=== PATIENT | female | born 1960 | race African-American/Black ===

== ENCOUNTER 2017-01-14 08:02 | Emergency (ER) | payer MEDICAID, OTHER ==
[~2017-01-14] VITALS: Ht 167.6 cm; Wt 95.0 kg
[~2017-01-14 08:02] MED LIST: LORT5TAB PO; SILV1CRE59 TOP
[2017-01-14] MEDS ORDERED: ESTR0.5T PO (08:18)
[2017-01-14] MEDS ORDERED: BENZ100 PO (08:29)
[2017-01-14] MEDS ORDERED: IPRA0.06 EACH NARE (08:29)
[2017-01-14] MEDS ORDERED: AZIT250T3 PO (08:29)
--- NOTE | 2017-01-14 08:30 | PD ---
HPI Chief Complaint: Cold / Flu Symptoms Time Seen by Provider: 08:23 Travel History International Travel<30 days: No Contact w/Intl Traveler<30days: No Traveled to known affect area: No History of Present Illness HPI Patient is a 56-year-old female presenting to emergency for evaluation of cough , nasal congestion, sinus pressure. Patient states her symptoms started 4 days ago, she denies any fever, chills, nausea, vomiting, abdominal pain, shortness of breath, chest pain. Patient states the cough is dry, hacking keeping her up at night. Patient reports postnasal drip and an irritated throat secondary to that. She has no other complaints at this time. [facility] Past Medical History Medical History: Denies Significant Hx Tetanus Vaccination: > 5 Years ?: Not Social History Alcohol Use: No Tobacco Use: No Substance Use: No Allergies-Medications (Allergen,Severity, Reaction): Coded Allergies: Penicillin (Verified Allergy, Severe, SWELLING, ITCHING, 01/14/17) Reported Meds & Prescriptions Reported Meds & Active Scripts Active Tessalon Perles (Benzonatate) 100 Mg Cap 200 Mg PO TID PRN 3 Days Azithromycin 250 Mg Tab 250 Mg PO DIRECTED Take 2 tabs (500 mg) on day 1 then 1 tab daily x 4 days. Ipratropium Nasal 0.06% Madison 1 Madison EACH NARE TID PRN Reported Estradiol 0.5 Mg Tab 0.5 Mg PO DAILY Review of Systems Except as stated in HPI: all other systems reviewed are Neg General / Constitutional: No: Fever, Chills HENT: Positive: Sore Throat, Rhinitis, Congestion Cardiovascular: No: Chest Pain or Discomfort Respiratory: Positive: Cough, No: Shortness of Breath, Wheezing Gastrointestinal: No: Nausea, Vomiting, Diarrhea, Abdominal Pain Musculoskeletal: No: Myalgias Neurologic: No: Dizziness, Focal Abnormalities, Headache Physical Exam Narrative GENERAL: Well-nourished, well-developed patient. SKIN: Warm and dry. HEAD: Normocephalic. ENT: Mucosa pink and moist. No erythema or exudates. No uvular edema. No uvular , palatal, or tonsillar deviation. Airway patent. Nasal turbinates appear normal without nasal blood, purulent drainage or septal hematoma. Cobblestone appearance to posterior pharynx. EYES: No scleral icterus. No injection or drainage. NECK: Supple, trachea midline. No JVD or lymphadenopathy. CARDIOVASCULAR: Regular rate and rhythm without murmurs, gallops, or rubs. RESPIRATORY: Breath sounds equal bilaterally. No accessory muscle use. GASTROINTESTINAL: Abdomen soft, non-tender, nondistended. MUSCULOSKELETAL: No cyanosis, or edema. BACK: Nontender without obvious deformity. No CVA tenderness. Data Data Last Documented VS Vital Signs Date Time Temp Pulse Resp B/P Pulse Ox O2 Delivery O2 Flow Rate FiO2 01/14/17 08:48 97.8 71 20 180/[address] [facility] Medical Decision Making Medical Screen Exam Complete: Yes Emergency Medical Condition: Yes Interpretation(s) Vital Signs Date Time Temp Pulse Resp B/P Pulse Ox O2 Delivery O2 Flow Rate FiO2 01/14/17 08:48 97.8 71 20 180/80 99 Differential Diagnosis Bronchitis versus pneumonia versus viral syndrome versus sinusitis versus other Narrative Course Patient is a 56-year-old female presenting to the emergency department for evaluation of cough, sinus pressure, congestion. Patient appears well, nontoxic. Symptoms appear most consistent with a viral upper respiratory infection. Patient was advised to continue symptomatic management. She will be provided with a prescription for an antibiotic however she was strongly encouraged to avoid its use for another 2-3 days as her symptoms will likely improve on their own. Patient was encouraged to follow-up with her primary doctor, she was also encouraged to return to emergency department for any new or worsening symptoms. Patient verbalized understanding of these instructions. Patient stable for discharge. Diagnosis Primary Impression: Viral URI with cough Referrals: Primary Care Physician 1 week Patient Instructions: General Instructions, Upper Respiratory Infection (ED) Additional Instructions: Follow-up with your primary doctor Continue symptom management Obtain [id number] Sudafed or similar agent and use as directed Take medications as directed If you begin antibiotic complete full course of therapy as prescribed Return to emergency department for any new or worsening symptoms Med/Other Pt SpecificInfo: Prescription(s) given Scripts Benzonatate (Tessalon Perles)100 Mg [id number] Mg PO TID PRN (COUGH) 3 Days Ref 0 Prov:Nemo Ocasio 01/14/17 Azithromycin 250 Mg [id number] Mg PO DIRECTED #6 TAB Ref 0 Take 2 tabs (500 mg) on day 1 then 1 tab daily x 4 days. Prov:Nemo Ocasio 01/14/17 Ipratropium Nasal 0.06% Spray1 Madison EACH NARE TID PRN (NASAL CONGESTION) #1 BOTTLE Ref 0 Prov:Nemo Ocasio 01/14/17 Disposition: 01 DISCHARGE HOME Condition: Stable Nemo Ocasio Jan 14, 2017 08:29
[2017-01-14 08:48] VITALS: BP 180/80; PULSE 71; RESP 20; TEMP 97.8; O2SAT 99
== END 2017-01-14 08:59 | disposition home or self-care (01) ==
LOC: NEPB 08:02
DX: J06.9 Acute upper respiratory infection, unspecified (principal)
CPT/HCPCS: 99282

== ENCOUNTER 2017-07-26 18:09 | Observation (INO) | payer MEDICAID ==
[~2017-07-26] VITALS: Ht 165.1 cm; Wt 100.0 kg
[~2017-07-26 18:09] MED LIST changes: +AZIT250T3 PO; +BENZ100 PO; +ESTR0.5T PO; +IPRA0.06 EACH NARE; -LORT5TAB PO; -SILV1CRE59 TOP
[2017-07-26 18:11] VITALS: BP 129/74; PULSE 68; RESP 15; TEMP 98.4; O2SAT 99
[2017-07-26 22:08] VITALS: BP 157/77; PULSE 61; RESP 18; O2SAT 100
[2017-07-26] MEDS ORDERED: TRAM50TA PO (22:10)
[2017-07-26] MEDS ORDERED: HYDR-3533 PO (22:10)
[2017-07-26] MEDS ORDERED: SODIUM CHLORIDE 0.9% FLUSH 10 ML FLUSH IVF PRN (22:30)
--- NOTE | 2017-07-26 22:43 | RADRPT ---
EXAM DATE/TIME: 07/26/2017 22:24 [facility] COMPARISON: No previous studies available for comparison. INDICATIONS : Chest pain and shortness of breath. MEDICAL HISTORY : None. SURGICAL HISTORY : [place] filter. ENCOUNTER: Initial ACUITY: 2 days PAIN SCORE: 2/10 LOCATION: Bilateral chest FINDINGS: A single view of the chest demonstrates the lungs to be symmetrically aerated without evidence of mas s, infiltrate or effusion. The cardiomediastinal contours are unremarkable. Osseous structures are intact. CONCLUSION: The lungs are clear. Jh Soler MD on July 26, 2017 at 22:41 Board Certified Radiologist. This report was verified electronically.
[2017-07-26 23:01] LABS: BASOPHIL % 0.7 % (0.0-2.0); EOSINOPHIL # 0.1 TH/MM3 (0-0.4); EOSINOPHIL % 1.1 % (0.0-4.0); HEMATOCRIT 30.5 % (35.0-46.0); LYMPH % 66.6 % (9.0-44.0); LYMPHOCYTE # 4.6 TH/MM3 (1.0-4.8); MEAN CELL VOLUME 96.4 FL (80.0-100.0); MEAN CORPUSCULAR HEMOGLOBIN 32.9 PG (27.0-34.0); MEAN CORPUSCULAR HGB CONC 34.1 % (32.0-36.0); MONO % 2.4 % (0.0-8.0); NEUT % 29.2 % (16.0-70.0); PLATELET COUNT 188 TH/MM3 (150-450); RED BLOOD COUNT 3.17 MIL/MM3 (4.00-5.30); RED CELL DISTRIBUTION WIDTH 15.1 % (11.6-17.2); WHITE BLOOD COUNT 6.9 TH/MM3 (4.0-11.0)
--- NOTE | 2017-07-26 23:04 | RADRPT ---
EXAM DATE/TIME: 07/26/2017 22:25 [facility] COMPARISON: No previous studies available for comparison. INDICATIONS : Bilateral leg swelling. MEDICAL HISTORY : Bilateral leg swelling. Bilateral leg pain. SURGICAL HISTORY : IVC Filter placement.Gastric bypass. ENCOUNTER: Initial ACUITY: 3 days PAIN SCORE: 8/10 LOCATION: Bilateral legs. TECHNIQUE: Venous ultrasound of the left and right leg was performed from the inguinal ligament to the proximal calf. Real-time, color Doppler and spectral tracing, compression and augmentation techniques were us ed. FINDINGS: RIGHT LEG: There is normal compressibility of the deep venous system from the inguinal region to the proximal ca lf. No echogenic clot is seen in the lumen of the common femoral, femoral, popliteal, and posterior tibial veins. There is a normal response of the venous system to proximal and distal augmentation an d respiration. LEFT LEG: There is normal compressibility of the deep venous system from the inguinal region to the proximal ca lf. No echogenic clot is seen in the lumen of the common femoral, femoral, popliteal, and posterior tibial veins. There is a normal response of the venous system to proximal and distal augmentation an d respiration. CONCLUSION: Normal examination. Simon Villagran MD on July 26, 2017 at 23:02 Board Certified Radiologist. This report was verified electronically.
[2017-07-26 23:11] LABS: APTT (PATIENT) 28.6 SEC (24.3-30.1); PROTHROMBIN TIME - PATIENT 10.7 SEC (9.8-11.6)
[2017-07-26 23:31] LABS: HEMO FLAGS AUTO DIFF
[2017-07-26 23:56] LABS: ALT (GPT) 29 U/L (10-53)
[2017-07-26 23:58] LABS: ANION GAP 9 MEQ/L (5-15); AST (GOT) 35 U/L (15-37); BICARBONATE 24.5 MEQ/L (21.0-32.0); BLOOD UREA NITROGEN 14 MG/DL (7-18); CHLORIDE 105 MEQ/L (98-107); GLOMERULAR FILTRATION RATE 99 ML/MIN (>89); POTASSIUM 3.9 MEQ/L (3.5-5.1); SODIUM (NA) 138 MEQ/L (136-145)
--- NOTE | 2017-07-26 23:59 | PD ---
HPI Chief Complaint: Edema Time Seen by Provider: 22:12 Travel History International Travel<30 days: No Contact w/Intl Traveler<30days: No Traveled to known affect area: No History of Present Illness HPI Patient is a 57-year-old female who comes in complaining of bilateral lower extremity swelling. She also says she has pain to the right side of her back and under her right arm. She says that all of the symptoms have been going on for the past 2 days. She denies any shortness of breath. She says she is worried this could be a sign of a heart attack. She says she had some substernal chest pain when she arrived at the ED. Her only history is chronic pain issues. She denies fever or chills. She denies cough or cold symptoms. [facility] Past Medical History Immunizations Current: Yes Tetanus Vaccination: Never Vaccinated Influenza Vaccination: No ?: Not Social History Alcohol Use: No Tobacco Use: No Substance Use: No Allergies-Medications (Allergen,Severity, Reaction): Coded Allergies: penicillin G (Unverified Allergy, Severe, SWELLING, ITCHING, 07/26/17) Reported Meds & Prescriptions Reported Meds & Active Scripts Active Reported Lortab (Hydrocodone-Acetaminophen) 5-325 Mg Tab 1 Tab PO Q6H PRN Tramadol (Tramadol HCl) 50 Mg Tab 50 Mg PO Q6H PRN Estradiol 0.5 Mg Tab 0.5 Mg PO DAILY Review of Systems Except as stated in HPI: all other systems reviewed are Neg General / Constitutional: No: Fever, Chills Eyes: No: Blurred Vision HENT: No: Headaches, Lightheadedness Respiratory: No: Cough, Shortness of Breath Gastrointestinal: No: Nausea, Vomiting Musculoskeletal: Positive: Edema, Pain Skin: No Rash, No Change in Pigmentation Neurologic: No: Weakness, Dizziness Physical Exam Narrative GENERAL: Awake and alert, in no acute distress. SKIN: Focused skin assessment warm/dry. HEAD: Atraumatic. Normocephalic. EYES: Pupils equal and round. No scleral icterus. ENT: Mucous membranes pink and moist. NECK: Trachea midline. No JVD. Tender to palpation of right trapezius muscle. CARDIOVASCULAR: Regular rate and rhythm. No murmur appreciated. RESPIRATORY: No accessory muscle use. Clear to auscultation. Breath sounds equal bilaterally. GASTROINTESTINAL: Abdomen soft, non-tender, nondistended. MUSCULOSKELETAL: No obvious deformities. No clubbing. No cyanosis. 1+ pitting edema bilateral lower extremities. No calf tenderness. NEUROLOGICAL: Awake and alert. No obvious cranial nerve deficits. Motor grossly within normal limits. Normal speech. PSYCHIATRIC: Appropriate mood and affect; insight and judgment normal. Data Data Last Documented VS Vital Signs Date Time Temp Pulse Resp B/P (MAP) Pulse Ox O2 Delivery O2 Flow Rate FiO2 07/26/17 22:08 61 18 157/77 (103) 100 Room Air 07/26/17 18:11 98.4 Orders Orders Complete Blood Count With Diff (07/26/17 22:21) Comprehensive Metabolic Panel (07/26/17 22:21) B-Type Natriuretic Peptide (07/26/17 22:21) Act Partial Throm Time (Ptt) (07/26/17 22:21) Prothrombin Time / Inr (Pt) (07/26/17 22:21) Troponin I (07/26/17 22:21) Iv Access Insert/Monitor (07/26/17 22:21) Electrocardiogram (07/26/17 22:21) Ecg Monitoring (07/26/17 22:21) Oximetry (07/26/17 22:21) Chest, Single Ap (07/26/17 22:21) Sodium Chloride 0.9% Flush (Ns Flush) (07/26/17 22:30) Us Leg Venous Doppler Bilat (07/26/17 ) Vital Signs (Adult) Q4H (07/27/17 00:24) Cardiac Rhythm .As Directed (07/27/17 00:24) Notify Dr: Other .PRN (07/27/17 00:24) Notify DrKristina Parameters (07/27/17 00:24) Resp Oxygen Nasal Cannula (07/27/17 ) Diet Heart Healthy (07/27/17 Breakfast) Ckmb (Isoenzyme) Profile (07/27/17 01:30) Ckmb (Isoenzyme) Profile (07/27/17 04:30) Troponin I (07/27/17 01:30) Troponin I (07/27/17 04:30) Electrocardiogram (07/27/17 01:30) Electrocardiogram (07/27/17 04:30) ^ Obtain (07/27/17 00:24) Sodium Chloride 0.9% Flush (Ns Flush) (07/27/17 00:30) Sodium Chloride 0.9% Flush (Ns Flush) (07/27/17 09:00) Leaf Tier / Telemetry [id number].[id number] (07/27/17 00:24) Admit Order (Ed Use Only) (07/27/17 ) Labs Laboratory Tests Test 07/26/17 22:30 White Blood Count 6.9 TH/MM3 Red Blood Count 3.17 MIL/MM3 Hemoglobin 10.4 GM/DL Hematocrit 30.5 % Mean Corpuscular Volume 96.4 FL Mean Corpuscular Hemoglobin 32.9 PG Mean Corpuscular Hemoglobin Concent 34.1 % Red Cell Distribution Width 15.1 % Platelet Count 188 TH/MM3 Mean Platelet Volume 8.3 FL Neutrophils (%) (Auto) 29.2 % Lymphocytes (%) (Auto) 66.6 % Monocytes (%) (Auto) 2.4 % Eosinophils (%) (Auto) 1.1 % Basophils (%) (Auto) 0.7 % Neutrophils # (Auto) 2.0 TH/MM3 Lymphocytes # (Auto) 4.6 TH/MM3 Monocytes # (Auto) 0.2 TH/MM3 Eosinophils # (Auto) 0.1 TH/MM3 Basophils # (Auto) 0.0 TH/MM3 CBC Comment AUTO DIFF Differential Total Cells Counted 100 Neutrophils % (Manual) 23 % Lymphocytes % 74 % Monocytes % 2 % Basophils % 1 % Neutrophils # (Manual) 1.6 TH/MM3 Differential Comment FINAL DIFF MANUAL Platelet Estimate NORMAL Platelet Morphology Comment NORMAL Red Cell Morphology Comment NORMAL Prothrombin Time 10.7 SEC Prothromb Time International Ratio 1.0 RATIO Activated Partial Thromboplast Time 28.6 SEC Blood Urea Nitrogen 14 MG/DL Creatinine 0.74 MG/DL Random Glucose 75 MG/DL Total Protein 7.7 GM/DL Albumin 3.8 GM/DL Calcium Level 8.6 MG/DL Alkaline Phosphatase 109 U/L Aspartate Amino Transf (AST/SGOT) 35 U/L Alanine Aminotransferase (ALT/SGPT) 29 U/L Total Bilirubin 0.2 MG/DL Sodium Level 138 MEQ/L Potassium Level 3.9 MEQ/L Chloride Level 105 MEQ/L Carbon Dioxide Level 24.5 MEQ/L Anion Gap 9 MEQ/L Estimat Glomerular Filtration Rate 99 ML/MIN Troponin I LESS THAN 0.02 NG/ML B-Type Natriuretic Peptide 10 PG/ML MDM Medical Decision Making Medical Screen Exam Complete: Yes Emergency Medical Condition: Yes Medical Record Reviewed: Yes Interpretation(s) ECG shows NSR at 60, no ST elevation or depression. Differential Diagnosis Acute kidney injury versus dependent edema versus DVT versus CHF Narrative Course Patient is a 57-year-old female comes in complaining of chest pain with leg swelling and right arm pain. Exam shows bilateral 1+ pitting edema. IV established, labs sent. First troponin is negative, creatinine is within normal limits. BNP is negative. Performed shows no acute abnormalities. Bilateral Doppler ultrasounds performed show no evidence of DVT. Patient given aspirin and placed in chest pain center for further management. Diagnosis Primary Impression: Chest pain Qualified Codes: R07.9 - Chest pain, unspecified Additional Impression: Lower extremity edema Admitting Information Admitting Physician Requests: Observation Condition: Stable Anyi Gandhi MD Jul 26, 2017 23:59
[2017-07-27] LABS: ALKALINE PHOSPHATASE 109 U/L (45-117); TOTAL BILIRUBIN ADULT 0.2 MG/DL (0.2-1.0)
[2017-07-27 00:30] LABS: BASOPHILS 1 % (0-2); NEUTROPHIL # MANUAL DIFF 1.6 TH/MM3 (1.8-7.7); POLYS (SEG NEUTROPHILS) 23 % (16-70); WBC DIFF SAMPLE 100
[2017-07-27] MEDS ORDERED: SODIUM CHLORIDE 0.9% FLUSH 10 ML FLUSH IV FLUSH PRN (00:30)
[2017-07-27 00:31] LABS: PLATELET ESTIMATE SMEAR NORMAL (NORMAL); PLATELET MORPHOLOGY NORMAL (NORMAL); SCAN/DIFF FINAL DIFF MANUAL
[2017-07-27] MEDS ORDERED: ACETAMINOPHEN 325 MG TAB PO ONE (01:30)
[2017-07-27] MEDS ORDERED: ASPIRIN 81 MG CHEW TAB CHEW ONE (01:30)
[2017-07-27 02:23] LABS: CREATINE KINASE 201 U/L (26-192)
[2017-07-27 02:32] VITALS: BP 141/73; PULSE 71; RESP 17; TEMP 98.1; O2SAT 98
[2017-07-27 02:35] LABS: CKMB 1.1 NG/ML (0.5-3.6)
[2017-07-27 06:04] LABS: CREATINE KINASE 178 U/L (26-192)
[2017-07-27 06:17] LABS: CKMB 1.1 NG/ML (0.5-3.6)
--- NOTE | 2017-07-27 07:04 | EKG ---
Date Performed: 07/27/2017 Time Performed: 01:44:31 PTAGE: 57 years EKG: Sinus rhythm POSSIBLE LEFT ATRIAL ENLARGEMENT SEPTAL MYOCARDIAL INFARCTION ABNORMAL ECG PREVIOUS TRACING : 07/27/2017 00.10 No significant change from previous tracing noted. DOCTOR: Brian Mohan Interpretating Date/Time 07/27/2017 07:03:25
--- NOTE | 2017-07-27 07:05 | EKG ---
Date Performed: 07/27/2017 Time Performed: 00:10:37 PTAGE: 57 years EKG: Sinus rhythm POSSIBLE LEFT ATRIAL ENLARGEMENT SEPTAL MYOCARDIAL INFARCTION ABNORMAL ECG PREVIOUS TRACING : 08/16/2015 15.56 No significant change from previous tracing noted. DOCTOR: Brian Mohan Interpretating Date/Time 07/28/2017 07:43:53
[2017-07-27 07:23] VITALS: BP 134/67; PULSE 65; RESP 21; TEMP 98.3; O2SAT 97
[2017-07-27 07:28] VITALS: PULSE 66
[2017-07-27] MEDS ORDERED: ONDANSETRON HCL 4 MG/2 ML VIAL IV PUSH PRN (08:00)
[2017-07-27] MEDS ORDERED: ACETAMINOPHEN 500 MG CPLT PO PRN (08:00)
[2017-07-27] MEDS ORDERED: NITROGLYCERIN 0.4 MG SL 25 TABS/BTL SL PRN (08:00)
[2017-07-27] MEDS ORDERED: ASPIRIN 325 MG TAB PO SCH (09:00)
[2017-07-27] MEDS ORDERED: SODIUM CHLORIDE 0.9% FLUSH 10 ML FLUSH IV FLUSH SCH (09:00)
--- NOTE | 2017-07-27 09:52 | EKG ---
Date Performed: 07/27/2017 Time Performed: 04:35:10 PTAGE: 57 years EKG: SINUS BRADYCARDIA SEPTAL MYOCARDIAL INFARCTION ABNORMAL ECG PREVIOUS TRACING : 07/27/2017 01.44 No significant change from previous tracing noted. DOCTOR: Brian Mohan Interpretating Date/Time 07/27/2017 09:52:22
--- NOTE | 2017-07-27 09:53 | HHI.HP ---
[facility] Chief Complaint Right arm pain, bilateral lower leg pain History of Present Illness 57 year old female with history of chronic back and leg pain presents to the ER for further evaluation of right sided chest pain and bilateral lower edema. Noticed bilateral lower leg edema on . She had been sitting at her sewing machine for nearly one week before she first noticed edema. Around the same time she noticed right arm pain and right scapula pain. Unable to describe right arm pain, stating "pain is just unusual." Described right scapula pain as a "deep inward pain." Radiation to right anterior chest intermittently. No associated symptoms of nausea, vomiting, diaphoresis, or shortness of breath. Duration of right arm pain constant since , scapular pain constant since Friday morning. No known precipitating factors. Relieving factors tramadol and goody's powder. No particular movement or position makes pain better or worse. Does not hurt to take a deep breath. Review of Systems General: No fatigue,weakness, fever, chills, or recent illness. Has been her general state of health. HEENT: Current headache, states headaches are not uncommon for her. CV: As stated above. No exertional chest pain or pressure. RESP: No SOB, cough or sputum production. GI: No nausea, vomiting, bowel changes, melena, or blood in the stool. Gastric bypass surgery 1998, initially lost 100 pounds gaining 40 pounds during menopause. : No dysuria, history of frequent UTIs, or history of kidney stones EXT: Bilateral lower leg edema 4 days, improving, no paraesthesias MS: As stated above. No recent injury, trauma, or fall. No discomfort or change in ROM. Sewing for nearly one week, which is not common for her. NEURO: No difficulty with balance, LOC, motor/sensory deficits PSYCH: No anxiety, depression, or situational stress. SKIN: No rashes, no concerning lesions Past Family Social History Allergies: Coded Allergies: penicillin G (Unverified Allergy, Severe, SWELLING, ITCHING, 07/26/17) Past Medical History Chronic back pain, bilateral lower leg pain since childhood (without a diagnosis ) Past Surgical History Gastric bypass (1998), Bilateral rotator cuff repair (2013 and 2014) Reported Medications Active Reported Lortab (Hydrocodone-Acetaminophen) 5-325 Mg Tab 1 Tab PO Q6H PRN Tramadol (Tramadol HCl) 50 Mg Tab 50 Mg PO Q6H PRN Estradiol 0.5 Mg Tab 0.5 Mg PO DAILY Vitamin D QD Flax seed oil QD Iron liquid QD MVI (calcium, magnesium, and zinc) Active Ordered Medications Current Medications Medications (Trade) Dose Ordered Sig/Conrado Route Start Time Stop Time Status Last Admin (NS Flush) 2 ml UNSCH PRN IVF 07/26/17 22:30 (NS Flush) 2 ml UNSCH PRN IV FLUSH 07/27/17 00:30 (NS Flush) 2 ml BID IV FLUSH 07/27/17 09:00 07/27/17 08:25 (Tylenol) 500 mg Q4H PRN PO 07/27/17 08:00 (Zofran Inj) 4 mg Q6H PRN IV PUSH 07/27/17 08:00 (Nitrostat Sl) 0.4 mg Q5M PRN SL 07/27/17 08:00 (Aspirin) 325 mg DAILY PO 07/27/17 09:00 07/27/17 08:24 Family History Father age 63 [place]. Mother age 89, Alzheimer's disease. Sister has A. Fib. Social History No known coronary artery disease, hypertension, hyperlipidemia, or diabetes. LIfelong nonsmoker. Denies any alcohol use or illegal drug use. Single. Disability. Walks 3-4 miles daily. Past Cardiac Testing No recent cardiac testing. She cannot recall ever having a stress test. Physical Exam Vital Signs Vital Signs Date Time Temp Pulse Resp B/P (MAP) Pulse Ox O2 Delivery O2 Flow Rate FiO2 07/27/17 07:28 66 07/27/17 07:23 98.3 65 21 134/67 (89) 97 07/27/17 02:57 07/27/17 02:32 98.1 71 17 141/73 (95) 98 07/26/17 22:08 61 18 157/77 (103) 100 Room Air 07/26/17 18:11 98.4 68 15 129/74 (92) 99 Physical Exam GENERAL: Alert WN, WD, NAD, pleasant, obese female HEAD: NC, AT EYES: Sclera clear, conjunctiva without injection, pupils equal and round ENT: Mucous membranes pink and moist NECK: Supple, no masses, trachea midline CV: RRR, 2/6 systolic murmur, no rub, no gallop, no JVD, S1-S2 no S3-S4. No carotid bruits. Chest pain not reproducible with palpation. RESP: Clear lungs throughout bilateral, no crackles, wheeze, rhonchi, symmetrical chest rise, nonlabored, able to speak in full sentences ABD: Soft, NT, ND, no masses, positive bowel tones EXT: Pulses +24, +1 pitting bilateral lower extremity edema MS: Normal tone 4 extremities, nontender with palpation, no obvious deformities , full range of motion NEURO: CN II through CN XII grossly intact, motor strength 5/5 PSYCH: A+O 3, pleasant affect, appropriate speech, appropriate mood and affect , insight and judgment SKIN: Normal turgor, normal texture, no lesions, no rashes Laboratory Laboratory Tests Test 07/26/17 22:30 07/27/17 01:40 07/27/17 04:30 White Blood Count 6.9 Red Blood Count 3.17 Hemoglobin 10.4 Hematocrit 30.5 Mean Corpuscular Volume 96.4 Mean Corpuscular Hemoglobin 32.9 Mean Corpuscular Hemoglobin Concent 34.1 Red Cell Distribution Width 15.1 Platelet Count 188 Mean Platelet Volume 8.3 Neutrophils (%) (Auto) 29.2 Lymphocytes (%) (Auto) 66.6 Monocytes (%) (Auto) 2.4 Eosinophils (%) (Auto) 1.1 Basophils (%) (Auto) 0.7 Neutrophils # (Auto) 2.0 Lymphocytes # (Auto) 4.6 Monocytes # (Auto) 0.2 Eosinophils # (Auto) 0.1 Basophils # (Auto) 0.0 CBC Comment AUTO DIFF Differential Total Cells Counted 100 Neutrophils % (Manual) 23 Lymphocytes % 74 Monocytes % 2 Basophils % 1 Neutrophils # (Manual) 1.6 Differential Comment FINAL DIFF MANUAL Platelet Estimate NORMAL Platelet Morphology Comment NORMAL Red Cell Morphology Comment NORMAL Prothrombin Time 10.7 Prothromb Time International Ratio 1.0 Activated Partial Thromboplast Time 28.6 Blood Urea Nitrogen 14 Creatinine 0.74 Random Glucose 75 Total Protein 7.7 Albumin 3.8 Calcium Level 8.6 Alkaline Phosphatase 109 Aspartate Amino Transf (AST/SGOT) 35 Alanine Aminotransferase (ALT/SGPT) 29 Total Bilirubin 0.2 Sodium Level 138 Potassium Level 3.9 Chloride Level 105 Carbon Dioxide Level 24.5 Anion Gap 9 Estimat Glomerular Filtration Rate 99 Troponin I LESS THAN 0.02 LESS THAN 0.02 LESS THAN 0.02 B-Type Natriuretic Peptide 10 Total Creatine Kinase 201 178 Creatine Kinase MB 1.1 1.1 Creatine Kinase MB % 0.5 Result Diagram: 07/26/17222907/26/172229 Imaging Chest xray read by radiologist no acute disease. Bilateral lower extremity ultrasound negative for DVT. Course EKG NSR, normal axis, no ST T segment changes Caprini VTE Risk Assessment Caprini VTE Risk Assessment: No/Low Risk (score <= 1) Caprini Risk Assessment Model Point Value = 1 Point Value = 2 Point Value = 3 Point Value = 5 Age 41-60 Minor surgery BMI > 25 kg/m2 Swollen legs Varicose veins or History of unexplained or recurrent spontaneous Oral contraceptives or hormone replacement Sepsis (< 1 month) Serious lung disease, including pneumonia (< 1 month) Abnormal pulmonary function Acute myocardial infarction Congestive heart failure (< 1 month) History of inflammatory bowel disease Medical patient at bed rest Age 61-74 Arthroscopic surgery Major open surgery (> 45 min) Laparoscopic surgery (> 45 min) Malignancy Confined to bed (> 72 hours) Immobilizing plaster cast Central venous access Age >= 75 History of VTE Family history of VTE Factor V Leiden Prothrombin [id number] Lupus anticoagulant Anticardiolipin antibodies Elevated serum homocysteine Heparin-induced thrombocytopenia Other congenital or acquired thrombophilia Stroke (< 1 month) Elective arthroplasty Hip, pelvis, or leg fracture Acute spinal cord injury (< 1 month) Prophylaxis Regimen Total Risk Factor Score Risk Level Prophylaxis Regimen 0-1 Low Early ambulation 2 Moderate Order ONE of the following: *Sequential Compression Device (SCD) *Heparin 5000 units SQ BID 3-4 Higher Order ONE of the following medications: *Heparin 5000 units SQ TID *Enoxaparin/Lovenox 40 mg SQ daily (WT < 150 kg, CrCl > 30 mL/min) *Enoxaparin/Lovenox 30 mg SQ daily (WT < 150 kg, CrCl > 10-29 mL/min) *Enoxaparin/Lovenox 30 mg SQ BID (WT < 150 kg, CrCl > 30 mL/min) AND/OR *Sequential Compression Device (SCD) 5 or more Highest Order ONE of the following medications: *Heparin 5000 units SQ TID (Preferred with Epidurals) *Enoxaparin/Lovenox 40 mg SQ daily (WT < 150 kg, CrCl > 30 mL/min) *Enoxaparin/Lovenox 30 mg SQ daily (WT < 150 kg, CrCl > 10-29 mL/min) *Enoxaparin/Lovenox 30 mg SQ BID (WT < 150 kg, CrCl > 30 mL/min) AND *Sequential Compression Device (SCD) Assessment and Plan Assessment and Plan #1 Atypical chest pain-admitted to chest pain center. Ruled out with 3 sets of EKGs, cardiac enzymes, and monitored overnight. Seen and evaluated by Dr. Dk Hernandez. Recommends exercise stress test, if unremarkable will discharge later this afternoon. Patient agreeable to plan of care. Chest discomfort atypical for cardiac pain. #2 Edema-bilateral lower leg ultrasound negative for DVT. Edema resolving. Edema most likely dependent related to her recent long hours of sitting. Discussed elevating legs after long periods of sitting. Follow-up with PCP if edema returns. Encouraged weight lost and continuing daily exercise. #3 Chronic pain-continue Lortab and Ultram as previously prescribed. Educated on current CDC guidelines do not support the use of opioid use for chronic back pain. Encouraged increasing daily activity, weight loss, increasing core and back strength. Shannon Nieto Jul 27, 2017 09:53
[2017-07-27] MEDS ORDERED: ACETAMINOPHEN/HYDROcodone 325 MG/5 MG TAB PO PRN (10:00)
[2017-07-27] MEDS ORDERED: traMADol HCL 50 MG TAB PO PRN (10:00)
[2017-07-27 11:18] VITALS: BP 165/75; PULSE 58; RESP 20; TEMP 98; O2SAT 99
--- NOTE | 2017-07-27 12:52 | HHI.DCPOC ---
Discharge Care Plan Diagnosis: (1) Atypical chest pain Goals to Promote Your Health * To prevent worsening of your condition and complications * To maintain your health at the optimal level Directions to Meet Your Goals Take your medications as prescribed Follow your dietary instruction Follow activity as directed Keep your appointments as scheduled Take your immunizations and boosters as scheduled If your symptoms worsen call your PCP, if no PCP go to Urgent Care Center or Emergency Room Smoking is Dangerous to Your Health. Avoid second hand smoke Call the 24-hour hour crisis hotline for domestic abuse at Shannon Nieto Jul 27, 2017 12:52
--- NOTE | 2017-07-28 13:44 | TR ---
Date Performed: 07/27/2017 Time Performed: 12:30:47 DOCTOR: Conner Sahni DRUG LIST: CLINICAL HISTORY: REASON FOR TEST: Chest pain REASON FOR ENDING: OBSERVATION: CONCLUSION: Harley protocol completed. Stopped sec to exceeding target heart rate and leg fatigue . Maximum TM=797 Target HR Achieved=87.0% Maximum BZ=475/110 Total Exercise Time=5:01. No reprod ches t pain. Rare PVC. No st t segment changes to sugg ischemia. Hypertensive response. Good exercise tole la. Recovery quick and unremarkable. COMMENTS: Patient exercised using the Harley protocol. No electrocardiographic changes were seen to suggest ischemia. Hemodynamic response to exercise was normal. No significant arrhythmia was prese nt.
== END 2017-07-27 14:56 | disposition home or self-care (01) ==
LOC: NEPD 18:09 → NEDA 07-27 00:28 → NEPGCP 07-27 02:25
PROVIDERS: ADMIT Internal Medicine Interventional Cardiology; ATTEND Internal Medicine Interventional Cardiology
DX: R07.89 Other chest pain (principal); R94.31 Abnormal electrocardiogram [ECG] [EKG]; R60.0 Localized edema; M54.9 Dorsalgia, unspecified; G89.29 Other chronic pain; Z98.84 Bariatric surgery status
CPT/HCPCS: 71010; 80053; 82550; 82552; 83880; 84484; 85007; 85027; 85610; 85730; 93005; 93017; 93970; 99285; G0378